=== PATIENT | male | born 1980 | race Caucasian/White ===

== ENCOUNTER 2025-02-27 08:32 | Emergency (ER) | payer BC ==
[~2025-02-27] VITALS: Ht 175.3 cm; Wt 72.6 kg
[2025-02-27] MEDS: IV NS 0.9% 1,000 ML BAG IV ONE ×2 (09:02→09:48)
[2025-02-27 09:07] LABS: PLATELET COUNT (AUTO) 209 K/uL (150-450); RED BLOOD CELL COUNT(AUTO) 5.19 MIL/uL (4.5-6.0); RED CELL DISTRIBUTION WIDTH 13.4 % (11.5-15.0); WHITE BLOOD COUNT (AUTO) 8.8 K/uL (4.3-11.0)
[2025-02-27 09:18] LABS: CALCIUM, SERUM 9.2 mg/dL (8.5-10.1); CREATININE 1.8 mg/dL (0.6-1.3); SODIUM SERUM 139.0 mmol/L (136-145); UREA NITROGEN, BLOOD 37.0 mg/dL (7-18)
[2025-02-27 09:27] LABS: NT-PRO BNP 105.0 pg/mL (0-125)
[2025-02-27] MEDS ORDERED: CT SWABBABLE VALVE TRANS SET 1 EA INFUS.SET MC ONE (09:31)
[2025-02-27] MEDS ORDERED: IV NS 0.9% 250 ML IV ONE (09:31)
[2025-02-27] MEDS ORDERED: IOHEXOL-350 100 ML VIAL IV ONE (09:31)
[2025-02-27] MEDS: PROPRANOLOL LA 60 MG CAP.SA.24H PO SCH (09:47)
[2025-02-27] MEDS ORDERED: PROP20TA7 PO (10:24)
[2025-02-27 11:58] VITALS: BP 132/87; TEMP 97.6; O2SAT 99
== END 2025-02-27 11:59 | disposition home or self-care (01) ==
LOC: ER 08:55
DX: R00.2 Palpitations (principal); R42 Dizziness and giddiness; I12.0 Hypertensive chronic kidney disease with stage 5 chronic kidney disease or end stage renal disease; N18.6 End stage renal disease; K21.9 Gastro-esophageal reflux disease without esophagitis; F17.200 Nicotine dependence, unspecified, uncomplicated; R06.02 Shortness of breath; F12.90 Cannabis use, unspecified, uncomplicated; Z79.621 Long term (current) use of calcineurin inhibitor; Z79.899 Other long term (current) drug therapy; Z88.8 Allergy status to other drugs, medicaments and biological substances; Z94.0 Kidney transplant status
CPT/HCPCS: 99285; 70498; 96360; 96361; 93005 ×2; 70496; 85025; 80048; 36415; 84484; 83880; J7030 ×2; J7050; Q9967